=== PATIENT | female | born 2000 | race Caucasian/White ===

== ENCOUNTER 2025-03-09 13:40 | Inpatient (IN) | payer BC ==
[2025-03-09 16:46] VITALS: BMI 36.6
[2025-03-09] MEDS ORDERED: Tranexamic Acid 1,000 MG/10 ML VIAL IVP PRN (17:22)
[2025-03-09] MEDS ORDERED: Carboprost 250 MCG/ML AMP IM PRN (17:22)
[2025-03-09] MEDS ORDERED: hydrALAZINE 20 MG/ML VIAL SLOW IVP PRN (17:22)
[2025-03-09] MEDS ORDERED: Ibuprofen 800 MG TAB PO PRN (17:22)
[2025-03-09] MEDS ORDERED: Lidocaine 1% (PF) 30 ML VIAL SC PRN (17:22)
[2025-03-09] MEDS ORDERED: Diphenoxylate HCl/Atropine Tablet PO PRN (17:22)
[2025-03-09] MEDS ORDERED: HYDROcodone/Acetaminophen 5/325 mg Tablet PO PRN (17:22)
[2025-03-09] MEDS ORDERED: Acetaminophen 500 MG TAB PO PRN (17:22)
[2025-03-09] MEDS ORDERED: Oxytocin 30 units/NS 500 ML 500 ML IV SCH (17:30)
[2025-03-09 17:31] LABS: Hematocrit 32.7 % (34.9-44.5); Hemoglobin 11.3 g/dL (12.0-15.5); Mean Corpuscular Hemoglobin 30.9 pg (27.0-33.0); Mean Corpuscular Volume 89.3 fL (81.6-98.3); Platelet Count 317 10x3/uL (150-450); Red Blood Cell (RBC) Count 3.66 10x6/uL (3.90-5.03); White Blood Cell (WBC) Count 13.56 10x3/uL (3.5-10.5)
[2025-03-09 17:41] LABS: ALT (SGPT) 10 U/L (Less than 34); AST (SGOT) 18 U/L (11-34); Albumin 3.3 g/dL (3.1-4.5); Alkaline Phosphatase 178 U/L (40-110); Anion Gap 13 mmol/L (10-20); BUN (Urea Nitrogen) 8 mg/dL (7.0-18.7); Bilirubin, Total 0.2 mg/dL (0.3-1.2); Calc. Creatinine Clearance 201 mL/min (70-130); Calcium 9.3 mg/dL (7.8-10.44); Carbon Dioxide 20 mmol/L (22-29); Chloride 108 mmol/L (98-107); Globulin 3.2 g/dL (2.4-3.5); Glucose 71 mg/dL (70-105); Potassium 4.2 mmol/L (3.5-5.1); Sodium 137 mmol/L (136-145)
[2025-03-09 19:22] LABS: Syphilis Antibody Index 0.06 S/CO (<1.00 Non-Reactive)
[2025-03-09 19:23] LABS: Hep B Surf Ag - L&D Non-Reactive S/CO (NonReactive)
[2025-03-10] MEDS: fentaNYL/Ropivacaine Epidural 100 ML ONE (02:20)
[2025-03-10] MEDS ORDERED: Acetaminophen 325 MG TAB PO PRN (06:08)
[2025-03-10] MEDS ORDERED: diphenhydrAMINE 50 MG/ML VIAL IVP PRN (06:08)
[2025-03-10] MEDS ORDERED: Ondansetron PF 4 MG/2 ML Vial IVP PRN ×2 (06:08→17:42)
[2025-03-10] MEDS ORDERED: Communication Order-Pharmacy FS PRN (06:12)
[2025-03-10] MEDS: Ondansetron PF 4 MG/2 ML Vial IVP PRN (09:47)
[2025-03-10] MEDS: fentaNYL/Ropivacaine Epidural 100 ML in Premix 1 BAG EPIDURAL SCH (13:34)
[2025-03-10] MEDS: Oxytocin 30 units/NS 500 ML 500 ML IV SCH (15:15)
[2025-03-10] MEDS ORDERED: Preparation H Ointment 28 GM TUBE PR PRN (17:42)
[2025-03-10] MEDS ORDERED: Milk Of Magnesia 30 ML UDCUP PO PRN (17:42)
[2025-03-10] MEDS ORDERED: HYDROcodone/Acetaminophen 5/325 mg Tablet PO PRN ×2 (17:42)
[2025-03-10] MEDS ORDERED: Benzocaine-Menthol 82.5 ML CAN TOP PRN (17:42)
[2025-03-10] MEDS ORDERED: hydrALAZINE 20 MG/ML VIAL SLOW IVP PRN (17:42)
[2025-03-10] MEDS ORDERED: Lanolin Ointment 7 GM TUBE TOP PRN (17:42)
[2025-03-10] MEDS ORDERED: Boostrix 0.5 ML (Tdap) VIAL (>/=7 yrs of age) IM ONE (17:42)
[2025-03-10] MEDS ORDERED: Bisacodyl 10 MG SUPP PR PRN (17:42)
[2025-03-10] MEDS ORDERED: diphenhydrAMINE 25 MG CAP PO PRN (17:42)
[2025-03-10] MEDS ORDERED: Bupivacaine HCl 0.5%/Epinephrine 1:200,000/PF 30 ml Vial ONE (18:30)
[2025-03-10] MEDS: Ibuprofen 800 MG TAB PO SCH (21:24)
[2025-03-11] MEDS: Ferrous Sulfate 325 MG TAB PO SCH ×2 (03:17→09:20)
[2025-03-12 07:29] VITALS: BP 133/88; TEMP 98
== END 2025-03-12 14:25 | disposition home or self-care (01) | DRG 807 ==
LOC: CSHLD 13:40 → CSHPP 03-10 17:30
PROVIDERS: ADMIT Student in an Organized Health Care Education/Training Program; ATTEND Student in an Organized Health Care Education/Training Program
PROC: 10E0XZZ Delivery of Products of Conception, External Approach (ICD-10-PCS; principal; 2025-03-10)
PROC: 0UQMXZZ Repair Vulva, External Approach (ICD-10-PCS; 2025-03-10)
PROC: 10907ZC Drainage of Amniotic Fluid, Therapeutic from Products of Conception, Via Natural or Artificial Opening (ICD-10-PCS; 2025-03-10)
DX: O13.4 Gestational [pregnancy-induced] hypertension without significant proteinuria, complicating childbirth (principal); Z37.0 Single live birth; Z3A.38 38 weeks gestation of pregnancy; O71.82 Other specified trauma to perineum and vulva
CPT/HCPCS: 36415; 51702; 80053; 85027; 86780; 86850; 86870; 86900; 86901; 87340; J2405; J2590